=== PATIENT | female | born 1960 | race Hispanic/Latino ===

== ENCOUNTER 2016-07-19 10:17 | Emergency (ER) | payer OTHER ==
[~2016-07-19] VITALS: Ht 157.5 cm; Wt 59.8 kg
[2016-07-19] MEDS ORDERED: ASPIRIN325 MG PO (10:44)
[2016-07-19] MEDS ORDERED: TYLENOL REGULA325 MG PO (10:45)
[2016-07-19] MEDS ORDERED: ZOFRAN ODT4 MG PO (11:13)
[2016-07-19 12:01] VITALS: BP 144/97
== END 2016-07-19 12:01 | disposition home or self-care (01) ==
LOC: EME 10:17
DX: F07.81 Postconcussional syndrome (principal); H53.8 Other visual disturbances; R11.0 Nausea; R42 Dizziness and giddiness
CPT/HCPCS: 70450; 99281; 99282